=== PATIENT | female | born 1990 | race Caucasian/White ===

== ENCOUNTER 2021-07-26 13:51 | Emergency (ER) | payer OTHER, SELFPAY ==
[2021-07-26 14:30] VITALS: BP 106/61; PULSE 120; RESP 16; TEMP 36.3; O2SAT 98
[2021-07-26 16:45] VITALS: BP 116/71; PULSE 103
[2021-07-26] MEDS: ONDANSETRON HCL ODT 4 MG TABLET PO (16:57)
[2021-07-26] MEDS: LACTATED RINGERS 1,000 ML 999 ML IV CONT (16:57)
--- NOTE | 2021-07-26 17:00 | ED.NAVMDI ---
HPI - Nausea/Vomiting/Diarrhea General Chief complaint: Nausea/Vomiting/Diarrhea Stated complaint: throwing up for 3 days Time Seen by Provider: 07/26/21 15:55 Source: patient and RN notes reviewed Mode of arrival: ambulatory Limitations: no limitations History of Present Illness HPI Narrative: This is a 30 year old female who presents for evaluation of nausea, vomiting and diarrhea. She states her infant has been having vomiting and diarrhea for 3 days. She developed similar symptoms last night . She developed nausea, vomiting and diarrhea. She reports having some lower abdominal pain with vomiting. She denies fever or chills. she has not had any vomiting since last night but she has continued to be nauseated. She also has some mild lightheadedness. Related Data Home Medications Medication Instructions Recorded Confirmed sertraline [Zoloft] 50 mg PO DAILY 07/26/21 07/26/21 sertraline [Zoloft] 100 mg PO DAILY 07/26/21 07/26/21 Allergies Allergy/AdvReac Type Severity Reaction Status Date / Time No Known Allergies Allergy Verified 07/26/21 15:59 Review of Systems Review of Systems: All systems reviewed & are unremarkable except as noted in HPI and below PMFSH Past Medical History Medical History (Updated 07/26/21 @ 19:06 by Ivett Decker MD) Anxiety Surgical History Surgical History (Updated 07/26/21 @ 17:01 by Ivett Decker MD) No pertinent past surgical history Social History Social History (Updated 07/26/21 @ 17:01 by Ivett Decker MD) Smoking status: Never smoker Exam Const: General: no acute distress and alert Orientation/consciousness: patient oriented x3 Eyes: EOM: EOMs intact bilaterally Resp: Effort & Inspection: normal respiratory effort and no retractions Auscultation: clear to auscultation bilaterally Cardio: Rate: regular rate Rhythm: regular rhythm Heart sounds: no murmurs GI: GI Palp: Yes Soft to palpation, No Tenderness to palpation present (GI) and No Guarding due to palpation present (GI) Auscultation: normal bowel sounds Back/Spine/Pelvis: Back: no CVA tenderness Skin: General skin exam: normal color Neuro: General: patient oriented x3, moves all extremities and CN's II-XI intact bilaterally Extrem: General: normal to inspection Psych: Mental Status: mental status grossly normal Affect: normal affect Course Reevaluation(s) Reevaluation #1: She reports she feels better. She has no abdominal tenderness or pain. She was able to tolerate PO. Date: 07/26/21 Time: 19:05 Vital Signs Vital signs: Vital Signs Temperature 97.3 F L 07/26/21 14:30 Pulse Rate 120 H 07/26/21 14:30 Respiratory Rate 16 07/26/21 14:30 Blood Pressure 106/61 07/26/21 14:30 Pulse Oximetry 98 07/26/21 14:30 Temperature 97.8 F 07/26/21 19:14 Pulse Rate 74 07/26/21 19:14 Respiratory Rate 16 07/26/21 19:14 Blood Pressure 110/68 07/26/21 19:14 Pulse Oximetry 99 07/26/21 19:14 MDM - Nausea/Vomiting/Diarrhea Lab Data Attestation: I reviewed the patient's lab results. Result diagrams: 07/26/21 17:00 07/26/21 17:41 Labs: Lab Results 07/26/21 07/26/21 07/26/21 Range/Units 17:00 17:00 17:41 WBC 11.0 H (4.5-10.0) K/mm3 RBC 5.20 (4.2-5.4) M/mm3 Hgb 15.1 H (12.0-15.0) g/dL Hct 45.7 (37.0-47.0) % MCV 87.9 (80-100) fl MCH 29.0 (26-34) pg MCHC 33.0 (32-36) g/dl RDW 13.0 (11.5-14.5) % Plt Count 220 (150-375) k/mm3 MPV 10.1 (7.4-10.4) fl Immature Gran % (Auto) 0.2 (0-0.5) % Neut % (Auto) 91.0 H (45.5-73.1) % Lymph % (Auto) 4.4 L (18.3-44.2) % Arroyo % (Auto) 3.9 (2.6-8.5) % Eos % (Auto) 0.3 (0-4.4) % Baso % (Auto) 0.2 (0.2-1.2) % Lymph # (Auto) 0.48 L (0.9-3.2) K/mm3 [place] # (Auto) 0.4 (0.1-0.6) K/mm3 Eos # (Auto) 0.0 (0-0.3) K/mm3 Baso # (Auto) 0.0 (0.0-0.1) K/mm3 Abs Immat Gran (auto) 0.02 (0.0
[2021-07-26 17:02] VITALS: BP 101/62; BP 113/69; PULSE 105; PULSE 122
[2021-07-26 17:09] LABS: Basophils Percent Auto 0.2 % (0.2-1.2); Eosinophils Percent Auto 0.3 % (0-4.4); Hematocrit 45.7 % (37.0-47.0); Hemoglobin 15.1 g/dL (12.0-15.0); Immature Granulocyte Absolute 0.02 K/mm3 (0.00-0.031); Immature Granulocyte Percent A 0.2 % (0-0.5); Lymphocytes Absolute Auto 0.48 K/mm3 (0.9-3.2); Lymphocytes Percent Auto 4.4 % (18.3-44.2); Mean Corpuscular Volume 87.9 fl (80-100); Mean Platelet Volume 10.1 fl (7.4-10.4); Monocytes Absolute Auto 0.4 K/mm3 (0.1-0.6); Monocytes Percent Auto 3.9 % (2.6-8.5); Platelet Count Result 220 k/mm3 (150-375)
[2021-07-26 17:44] LABS: Add Urine Microscopic? YES; Appearance Urine Cloudy (Clear); Bacteria Urine Trace /hpf; Bilirubin Urine Negative (Negative); Blood Urine Negative (Negative); Color Urine Yellow (Yellow); Glucose Urine UA Negative (Negative); Ketones Urine Negative (Negative); Leukocyte Esterase Ur Negative LEU/UL (Negative); Mucus Urine Rare /lpf; Nitrate Urine Negative (Negative); Protein Urine Negative (Negative); Specific Grav Ur 1.035 (1.001-1.035); Squamous Epithelial Cell Urine Many /hpf (Few); Urobilinogen Urine Negative mg/dL (<2.0); WBC Urine 0-3 /hpf
--- NOTE | 2021-07-26 18:03 | PC.NURSE ---
pt eating crackers and drinking fluids at this time
[2021-07-26 18:44] LABS: Alanine Aminotransferase 18 U/L (4-35); Albumin Level 4.2 g/dL (3.5-5.1); Alkaline Phosphatase 78 U/L (38-126); Anion Gap 9 mmol/L (8-16); Aspartate Amino Transferase 21 U/L (14-36); Bilirubin,Total 0.9 mg/dL (0.2-1.3); Blood Urea Nitrogen 15 mg/dL (7-17); Calcium 8.4 mg/dL (8.4-10.2); Carbon Dioxide 27 mmol/L (22-30); Chloride 98 mmol/L (98-107); Estimated CRCL calculation 113 ml/min; Estimated Glomerular Filt Rate > 60; Glucose 101 mg/dL (65-110); Lipase 55 U/L (23-300); Potassium 3.6 mmol/L (3.4-5.0); Sodium 134 mmol/L (137-145)
[2021-07-26 19:14] VITALS: BP 110/68; PULSE 74; RESP 16; TEMP 36.6; O2SAT 99
== END 2021-07-26 19:15 | disposition home or self-care (01) ==
PROVIDERS: Emergency Provider General Practice
DX: K52.9 Noninfective gastroenteritis and colitis, unspecified (principal); E86.0 Dehydration
CPT/HCPCS: 36415; 80053; 81001; 81025; 83690; 85025; 96365; 99284; A9270; J0131; J7120